=== PATIENT | female | born 1965 | race Caucasian/White ===

== ENCOUNTER → 2018-07-20 | Outpatient (CLI) | payer OTHER, MEDICAID | LOC: BMCIMAGING 15:11 | PROVIDERS: ATTEND Family Medicine | DX: S89.91XA Unspecified injury of right lower leg, initial encounter (principal) ==

== ENCOUNTER 2019-03-15 15:15 | Emergency (ER) | payer OTHER, MEDICAID ==
[2019-03-15] MEDS ORDERED: CLINDAMYCIN 600 MG/DEXTROSE 50 ML IV ONE (16:13)
--- NOTE | 2019-03-15 16:17 | EDPHY ---
H & P Time Seen by Provider: 03/15/19 15:48 HPI/ROS: CHIEF COMPLAINT: Earache HISTORY OF PRESENT ILLNESS: Patient is a 53-year-old female who presents emergency department with ongoing earache. Patient developed right ear pain 5 days ago. It has been worsening. Pain is now severe. She also describes congestion and decreased hearing. Patient has had no discharge from her ear. Patient called her primary care physician a couple of days ago was told to be seen immediately. She states she was unable to get to the doctor's office because of dizziness due to her ear infection. She was seen by her physicians PA today and sent to the emergency department with concerns for mastoiditis. Patient was noted to have redness and tenderness behind her ear. Patient denies any fevers or chills. No neck stiffness. REVIEW OF SYSTEMS: 10 systems were reveiwed and are negative with the exception of the elements mentioned in the history of present illness. Past Medical/Surgical History: Includes fibromyalgia, arthritis, diabetes, diabetic neuropathy Smoking Status: Former smoker Physical Exam: Vitals noted GENERAL: Well-appearing, in no acute distress, alert. HEENT: Eyes normal to inspection, normal pharynx, no signs of dehydration. Patient's right TM is distended. There is pus behind the TM. No perforation. No erythema in the canal. Postauricular lymphadenopathy present. Patient has mild redness behind her right ear. There is mild tenderness to palpation of her right mastoid. NECK: Normal, supple. RESPIRATORY: Clear to auscultation bilaterally, no rales, rhonchi or wheezing. CVS: Regular rate and rhythm, no rubs, murmurs, or gallops. ABDOMEN: Soft, nontender, nondistended, no organomegaly. BACK: Normal to inspection, no CVA tenderness. SKIN: Normal color, no rash, warm, dry. No pallor. EXTREMITIES: No pedal edema, no calf tenderness, no Homans sign or cords, no joint swelling. NEURO/PSYCH: Alert and oriented, normal mood and affect, normal motor sensory exam. No obvious cranial nerve deficit. Constitutional: Initial Vital Signs Temperature (C) 36.6 C 03/15/19 15:25 Heart Rate 91 03/15/19 15:25 Respiratory Rate 16 03/15/19 15:25 Blood Pressure 144/86 H 03/15/19 15:25 O2 Sat (%) 97 03/15/19 15:25 Medical Decision Making - Diagnostics Imaging Results: Imaging Impressions Head CT 03/15/19 16:13 Impression: Partial fluid opacification of the mastoid air cells, right greater than left, with partial fluid opacification of the right middle ear, without definite evidence of osseous erosion. Findings discussed with Sapna Vega M.D., on March 15, 2019 at 1644. ED Course/Re-evaluation: In the emergency department discussed possible etiologies with the patient. I answered all her questions. IV was placed. Laboratory studies were obtained. Patient was given clindamycin 600 mg IV for possible mastoiditis. CT scan of the head was ordered. Head CT: Please refer the dictated report. There is some mild fluid in the right mastoid sinus. No intracranial process. I discussed the case with Dr. Christensen from ENT. He recommends the patient be treated with clindamycin orally. He recommends follow-up in his office. Patient was given warnings prior to leaving. She will return worsening symptoms. Differential Diagnosis: My differential includes but is not limited to mastoiditis, otitis media, tympanic membrane perforation, mass, abscess, meningitis - Data Points Laboratory Results: Laboratory Results 03/15/19 Unknown 03/15/19 03/15/19 Unknown 16:40 WBC 9.42 10^3/uL 10^3/uL (3.80-9.50) RBC 5.29 10^6/uL 10^6/uL (4.18-5.33) Hgb 14.5 g/dL g/dL (12.6-16.3) Hct 44.7 % % (38.0-47.0) MCV 84.5 fL fL (81.5-99.8) MCH 27.4 pg L pg (27.9-34.1) MCHC 32.4 g/dL g/dL (32.4-36.7) RDW 14.1 % % (11.5-15.2) Plt Count 277 10^3/uL 10^3/uL (150-400) MPV 11.1 fL fL (8.7-11.7) Neut % (Auto) 73.4 % % (39.3-74.2) Lymph % (Auto) 18.7 % % (15.0-45.0) [place] % (Auto) 6.1 % % (4.5-13.0) Eos % (Auto) 1.2 % % (0.6-7.6) Baso % (Auto) 0.3 % % (0.3-1.7) Nucleat RBC Rel Count 0.0 % % (0.0-0.2) Absolute Neuts (auto) 6.92 10^3/uL H 10^3/uL (1.70-6.50) Absolute Lymphs (auto) 1.76 10^3/uL 10^3/uL (1.00-3.00) Absolute Monos (auto) 0.57 10^3/uL 10^3/uL (0.30-0.80) Absolute Eos (auto) 0.11 10^3/uL 10^3/uL (0.03-0.40) Absolute Basos (auto) 0.03 10^3/uL 10^3/uL (0.02-0.10) Absolute Nucleated RBC 0.00 10^3/uL 10^3/uL (0-0.01) Immature Gran % 0.3 % % (0.0-1.1) Immature Gran # 0.03 10^3/uL 10^3/uL (0.00-0.10) VBG Lactic Acid 1.5 mmol/L mmol/L (0.7-2.1) Medications Given: Discontinued Medications Clindamycin Phosphate/Dextrose (Cleocin 600 Mg (Premix)) 50 mls @ 100 mls/hr IV EDNOW ONE PRN Reason: Protocol Stop: 03/15/19 16:42 Last Admin: 03/15/19 16:37 Dose: 50 mls Departure - Departure Disposition: Home, Routine, Self-Care Clinical Impression: Otitis media Qualifiers: Otitis media type: suppurative Chronicity: acute Laterality: right Recurrence: non-recurrent Spontaneous tympanic membrane rupture: without spontaneous rupture Qualified Code(s): H66.001 - Acute suppurative otitis media without spontaneous rupture of ear drum, right ear Mastoiditis Qualifiers: Laterality: right Qualified Code(s): H70.91 - Unspecified mastoiditis, right ear Condition: Good Instructions: Ear Infection (ED), Mastoiditis (ED) Additional Instructions: Take your entire course of antibiotics. Return with increasing pain, persistent fever, worsening headache or any other concerns. Referrals: Roxana Ott MD [Primary Care Provider] - 2-3 days, call for appt. Brandon Christensen MD [Medical Doctor] - 2-3 days without fail
[2019-03-15 17:03] LABS: PLATELET COUNT 277 10^3/uL (150-400)
[2019-03-15 17:38] VITALS: BP 142/82
== END 2019-03-15 17:10 | disposition home or self-care (01) ==
DX: H66.001 Acute suppurative otitis media without spontaneous rupture of ear drum, right ear (principal); H70.91 Unspecified mastoiditis, right ear
CPT/HCPCS: 96365